=== PATIENT | male | born 1985 | race American Indian/Alaskan Native ===

== ENCOUNTER 2018-01-26 21:30 | Emergency (ER) | payer OTHER ==
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
[2018-01-26] MEDS: Lidocaine 1% 30 ML SDV INJECT ONE (22:00)
[2018-01-26 22:04] LABS: CHLORIDE,CL 106 mmol/L (101-111); SODIUM,NA 140 mmol/L (135-145)
[2018-01-26] MEDS: Diphtheria,Pertussis(Acell),Tetanus Vaccine 0.5 ML SDV IM ONE (22:55)
[2018-01-26] MEDS: Bacitracin Oint 1 GM U/D Packet TOP ONE (22:58)
[2018-01-26] MEDS: Iopamidol 612 MG/ML 100 ML Bottle IVPUSH ONE (22:58)
== END 2018-01-26 23:00 ==
LOC: DL.ED 21:30
DX: S71.112A Laceration without foreign body, left thigh, initial encounter (principal); F10.129 Alcohol abuse with intoxication, unspecified; Z23 Encounter for immunization; Y90.8 Blood alcohol level of 240 mg/100 ml or more; Y04.0XXA Assault by unarmed brawl or fight, initial encounter
CPT/HCPCS: 36415; 80053; 85025; 85610; 90471; 90715; 99284; G0480

== ENCOUNTER 2020-09-03 14:25 | Emergency (ER) | payer OTHER ==
[2020-09-03] MEDS ORDERED: Sodium Chloride 0.9% 1,000 ML IV ONE (14:34)
[2020-09-03 14:35] VITALS: BP 110/74; PULSE 134
[2020-09-03] MEDS ORDERED: Ondansetron 4 MG/2 ML SDV IVPUSH ONE (14:35)
[2020-09-03] MEDS ORDERED: Iopamidol 755 Mg/ML 100 ML Bottle IVPUSH ONE (15:21)
[2020-09-03] MEDS ORDERED: cefTRIAXone 1 GM in Sodium Chloride 0.9% 50 ML IV ONE (15:54)
--- NOTE | 2020-09-03 16:18 | CT ---
EXAMINATION: Chest w Cont SEX: Male AGE: 35 years CLINICAL HISTORY: 35-year-old 150 pound febrile male SHORT OF BREATH. "Skinny male" tests COVID negative. Meth addict ("smokes, injects, snorts") and describes onset of symptomatology 5 days ago. WBC 14,800. Serum D dimer 1640. Scan technique: Volume acquisition of data chest (bony thorax, lungs and mediastinum) obtained during the intravenous administration of 59 cc nonionic Isovue 370 contrast at 4.6 cc/s via injector (PE protocol) while lying supine on the Siemens multislice scanner [place], [place]. All data archived in the PACS system for storage, reformatting axial/sagittal/coronal planes and study. Note: Examination is nondiagnostic with regards to pulmonary embolism/infarct (patient Valsalva?). Interpretation: Markedly ABNORMAL. 1. *Dense pneumonic like consolidation opacifying most of the left lower lobe (LLL) and right middle lobe (RML) as well as small segment of the contralateral right lower lobe (RLL), with underlying air bronchograms most characteristic of aspiration pneumonia. Clinical? 2. Dependent large subpulmonic pleural effusion, on the left. Empyema a differential consideration. 3. No peripheral "groundglass" interstitial densities suggesting COVID pneumonia. 4. Normal cardiac silhouette. No pericardial effusion. No vascular congestion, cephalization of flow or upper lobe alveolar edema. No pleural effusion on the right. 5. No contrast in the main pulmonary arteries (exam "triggered" late) i.e exam nondiagnostic for pulmonary embolism or infarct. Normal left ventricle/thoracic aorta. 6. No pneumothorax or pneumomediastinum. 7. Most of the liver, stomach, spleen, and both adrenal glands unremarkable.
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
== END 2020-09-03 17:25 ==
LOC: DL.ED 14:25
DX: J18.9 Pneumonia, unspecified organism (principal); J90 Pleural effusion, not elsewhere classified; Z72.0 Tobacco use
CPT/HCPCS: 36415; 71260; 83605; 85379; 87040; 96365; 96367; 96375; 99285; J0696; J2405; J3370; J7030; J7050; Q9967; 87077; 87186

== ENCOUNTER 2022-09-20 20:10 | Emergency (ER) | payer MEDICAID, OTHER ==
[2022-09-20 20:46] LABS: ANION GAP 13.7 mEq/L (7-13); CHLORIDE,CL 106 mmol/L (98-107); ESTIMATED GFR 118 mL/min (>=60); SODIUM,NA 145 mmol/L (136-145)
[2022-09-20 21:08] VITALS: BP 154/106; PULSE 88
== END 2022-09-20 22:08 | disposition home or self-care (01) ==
LOC: DL.ED 20:10
DX: S01.01XA Laceration without foreign body of scalp, initial encounter (principal); Y04.2XXA Assault by strike against or bumped into by another person, initial encounter
CPT/HCPCS: 12001; 36415; 70450; 70486; 72125; 80053; 80307; 85025; 99283; 99284

== ENCOUNTER 2022-12-12 15:47 | Emergency (ER) | payer MEDICAID ==
[~2022-12-12 15:47] MED LIST: Naloxone 2 MG/2 ML Syringe IVPUSH ONE
[2022-12-12] MEDS ORDERED: Ondansetron 4 MG/2 ML SDV IV ONE (15:49)
[2022-12-12] MEDS ORDERED: Sodium Chloride 0.9% 10 ML Syringe FLUSH PRN (15:49)
[2022-12-12] MEDS ORDERED: Sodium Chloride 0.9% 1,000 ML IV ONE ×2 (15:49→17:35)
[2022-12-12 15:57] VITALS: BP 140/92; PULSE 80
[2022-12-12 16:26] LABS: APPEARANCE,URINE CLEAR (CLEAR); BILIRUBIN,URINE NEGATIVE (NEGATIVE); COLOR,URINE YELLOW (YELLOW); GLUCOSE,URINE NEGATIVE (NEGATIVE); KETONES,URINE 15 (NEGATIVE); LEUKOCYTE ESTERASE,URINE NEGATIVE (NEGATIVE); NITRITE,URINE NEGATIVE (NEGATIVE); OCCULT BLOOD,URINE TRACE-INTACT (NEGATIVE); PROTEIN,URINE 100 (NEGATIVE); UROBILINOGEN,URINE 0.2 mg/dL (0.2-1.0)
[2022-12-12 16:33] LABS: AMPHETAMINES,URINE POSITIVE (NEGATIVE); BARBITURATES,URINE NEGATIVE (NEGATIVE); BENZODIAZEPINE,URINE NEGATIVE (NEGATIVE); MDMA (ECSTASY), URINE NEGATIVE (NEGATIVE); METHADONE,URINE NEGATIVE (NEGATIVE); METHAMPHETAMINES,URINE POSITIVE (NEGATIVE); OPIATES,URINE NEGATIVE (NEGATIVE); OXYCODONE,URINE NEGATIVE (NEGATIVE); PHENCYCLIDINE,URINE NEGATIVE (NEGATIVE); TCA,URINE NEGATIVE (NEGATIVE)
[2022-12-12 16:47] LABS: BASOPHILS PERCENT AUTO 1.7 % (0.0-1.0); EOSINOPHILS PERCENT AUTO 0.9 % (1.0-3.0); HEMATOCRIT 38.7 % (40.0-54.0); HEMOGLOBIN 12.9 g/dL (14.0-18.0); LYMPHOCYTES PERCENT AUTO 25.7 % (20.5-50.1); MEAN CORPUSCULAR HGB CONC 33.3 g/dL (33.0-35.0); MEAN CORPUSCULAR VOLUME 84.1 fL (80-100); MONOCYTES PERCENT AUTO 6.7 % (2-8); PLATELET COUNT,PLT 236 10^3/uL (150-450); WHITE BLOOD CELL COUNT,WBC 5.4 10^3/uL (5.0-10.0)
[2022-12-12 16:55] LABS: AMORPHOUS SEDIMENT,URINE MODERATE /HPF (NOT SEEN); BACTERIA,URINE FEW /HPF (0-FEW/HPF); EPITHELIAL CELLS,URINE MANY /HPF (NOT SEEN); FINE GRANULAR CASTS,URINE FEW /LPF (NOT SEEN); GRANULAR CASTS,URINE MANY; HYALINE CASTS,URINE FEW; MUCUS,URINE FEW /LPF (NOT SEEN); RBC,URINE 0-5 /HPF (0-5); WBC,URINE 0-5 /HPF (0-5/HPF)
[2022-12-12] MEDS ORDERED: Piperacillin/Tazobactam 3.375 GM in Sodium Chloride 0.9% 100 ML IV ONE (17:02)
[2022-12-12] MEDS ORDERED: Azithromycin 250 MG Tab PO ONE (17:02)
[2022-12-12 17:06] LABS: INR 0.9 (0.9-1.2); PROTHROMBIN TIME 9.6 SEC (9.0-12.0); PTT,PARTIAL THROMBOPLSTIN TIME 26.2 SEC (22.0-34.0)
[2022-12-12 17:09] LABS: A/G RATIO 0.9; ALBUMIN 3.5 g/dL (3.4-5.0); ANION GAP 15.7 mEq/L (7-13); BILIRUBIN TOTAL 0.8 mg/dL (0.2-1.0); CALCIUM 7.5 mg/dL (8.5-10.1); CREATININE 0.86 mg/dL (0.70-1.30); EST CRCL DRUG DOSING (CG) 108.89 mL/min; POTASSIUM,K 3.7 mmol/L (3.5-5.1); PROTEIN TOTAL,TP 7.2 g/dL (6.4-8.2)
[2022-12-12 17:26] LABS: LACTIC ACID 2.9 mmol/L (0.4-2.0)
== END 2022-12-12 21:07 | disposition home or self-care (01) ==
LOC: DL.ED 15:47
DX: S02.40FA Zygomatic fracture, left side, initial encounter for closed fracture (principal); S00.03XA Contusion of scalp, initial encounter; S10.93XA Contusion of unspecified part of neck, initial encounter; S05.12XA Contusion of eyeball and orbital tissues, left eye, initial encounter; F10.929 Alcohol use, unspecified with intoxication, unspecified; F12.10 Cannabis abuse, uncomplicated; F15.129 Other stimulant abuse with intoxication, unspecified; F17.210 Nicotine dependence, cigarettes, uncomplicated; Y90.8 Blood alcohol level of 240 mg/100 ml or more; Y04.0XXA Assault by unarmed brawl or fight, initial encounter
CPT/HCPCS: 36415; 70450; 70486; 71045; 72125; 80053; 80143; 80179; 80305-QW; 80307; 81001; 82947; 83605; 85025; 85610; 85730; 87040; 96365; 96375; 99284; 99284-25; A9270-GY; J2310; J2405; J2543; J3490; J7030

== ENCOUNTER 2023-01-22 17:28 | Emergency (ER) | payer MEDICAID ==
[2023-01-22] MEDS ORDERED: Amoxicillin/Clavulanate K 875-125 MG Tab PO ONE (21:27)
[2023-01-22 21:59] LABS: BASOPHILS PERCENT AUTO 0.8 % (0.0-1.0); EOSINOPHILS PERCENT AUTO 2.9 % (1.0-3.0); HEMATOCRIT 38.6 % (40.0-54.0); HEMOGLOBIN 12.9 g/dL (14.0-18.0); LYMPHOCYTES PERCENT AUTO 33.5 % (20.5-50.1); MEAN CORPUSCULAR HGB CONC 33.4 g/dL (33.0-35.0); MEAN CORPUSCULAR VOLUME 83.9 fL (80-100); NEUTROPHILS PERCENT AUTO 54.8 % (42.2-75.2); PLATELET COUNT,PLT 106 10^3/uL (150-450); WHITE BLOOD CELL COUNT,WBC 5.3 10^3/uL (5.0-10.0)
[2023-01-22 22:17] LABS: A/G RATIO 0.9; ALBUMIN 3.7 g/dL (3.4-5.0); ANION GAP 13.5 mEq/L (7-13); BILIRUBIN TOTAL 0.8 mg/dL (0.2-1.0); BUN/CREATININE RATIO 8.5 (No establ ref range); CALCIUM 8.1 mg/dL (8.5-10.1); CREATININE 0.82 mg/dL (0.70-1.30); EST CRCL DRUG DOSING (CG) 106.58 mL/min; MAGNESIUM 1.6 mg/dL (1.8-2.4); POTASSIUM,K 3.5 mmol/L (3.5-5.1); PROTEIN TOTAL,TP 7.6 g/dL (6.4-8.2)
[2023-01-22] MEDS ORDERED: Lactated Ringers 1,000 ML IV ONE (22:54)
[2023-01-22 22:59] LABS: AMPHETAMINES,URINE NEGATIVE (NEGATIVE); BARBITURATES,URINE NEGATIVE (NEGATIVE); BENZODIAZEPINE,URINE NEGATIVE (NEGATIVE); MDMA (ECSTASY), URINE NEGATIVE (NEGATIVE); METHADONE,URINE NEGATIVE (NEGATIVE); METHAMPHETAMINES,URINE NEGATIVE (NEGATIVE); OPIATES,URINE NEGATIVE (NEGATIVE); OXYCODONE,URINE NEGATIVE (NEGATIVE); PHENCYCLIDINE,URINE NEGATIVE (NEGATIVE); TCA,URINE NEGATIVE (NEGATIVE)
[2023-01-23] MEDS ORDERED: Lidocaine 1% 5 ML VIAL INJECT ONE (00:51)
[2023-01-23 02:06] VITALS: BP 113/85; PULSE 88
== END 2023-01-23 02:01 | disposition home or self-care (01) ==
LOC: DL.ED 17:28
DX: S01.511A Laceration without foreign body of lip, initial encounter (principal); F10.120 Alcohol abuse with intoxication, uncomplicated; F17.210 Nicotine dependence, cigarettes, uncomplicated; Y90.8 Blood alcohol level of 240 mg/100 ml or more; Y04.1XXA Assault by human bite, initial encounter
CPT/HCPCS: 12011; 36415; 80053; 80305; 80307; 83735; 85025; 96360; 99282; 99284; A9270; J7120; J3490

== ENCOUNTER 2024-07-23 02:30 | Emergency (ER) | payer MEDICAID ==
[2024-07-23 02:56] LABS: BASOPHILS PERCENT AUTO 0.3 % (0.0-1.0); EOSINOPHILS PERCENT AUTO 5.8 % (1.0-3.0); HEMATOCRIT 37.9 % (40.0-54.0); HEMOGLOBIN 12.2 g/dL (14.0-18.0); LYMPHOCYTES PERCENT AUTO 20.1 % (20.5-50.1); MEAN CORPUSCULAR HEMOGLOBIN 25.7 pg (27.0-34.0); MEAN CORPUSCULAR HGB CONC 32.2 g/dL (33.0-35.0); MONOCYTES PERCENT AUTO 7.7 % (2-8); NEUTROPHILS PERCENT AUTO 66.1 % (42.2-75.2); PLATELET COUNT,PLT 150 10^3/uL (150-450); RED BLOOD CELL COUNT 4.74 10^6/uL (4.6-6.2); WHITE BLOOD CELL COUNT,WBC 5.8 10^3/uL (5.0-10.0)
[2024-07-23] MEDS: Iopamidol 612 MG/ML 100 ML Bottle IVPUSH ONE (02:58)
[2024-07-23 03:09] LABS: LACTIC ACID 1.6 mmol/L (0.4-2.0)
[2024-07-23] MEDS: Sodium Chloride 0.9% 1,000 ML IV ONE ×2 (03:10→04:10)
[2024-07-23 03:13] LABS: ALANINE AMINOTRANSFERASE,ALT 28 U/L (16-63); ALBUMIN 3.2 g/dL (3.4-5.0); ALKALINE PHOSPHATASE 106 U/L (46-116); ANION GAP 15.3 mEq/L (7-13); ASPARTATE AMNIOTRANSFERASE,AST 50 U/L (15-37); BILIRUBIN TOTAL 0.5 mg/dL (0.2-1.0); BLOOD UREA NITROGEN,BUN 3 mg/dL (7-18); BUN/CREATININE RATIO 4.8 (No establ ref range); CALCIUM 7.7 mg/dL (8.5-10.1); CARBON DIOXIDE,CO2 26 mmol/L (21-32); CHLORIDE,CL 108 mmol/L (98-107); CREATININE 0.63 mg/dL (0.70-1.30); GLUCOSE RANDOM 99 mg/dL (70-99); LIPASE 56 U/L (16-77); MAGNESIUM 1.4 mg/dL (1.8-2.4); POTASSIUM,K 3.3 mmol/L (3.5-5.1); PROTEIN TOTAL,TP 7.2 g/dL (6.4-8.2); SODIUM,NA 146 mmol/L (136-145)
[2024-07-23 03:14] LABS: ESTIMATED GFR 124 mL/min (>=60); ETHANOL BLOOD MEDICAL 313 mg/dL (0)
[2024-07-23 03:22] LABS: PROTHROMBIN TIME 10.5 SEC (9.0-12.0)
[2024-07-23] MEDS: Thiamine 100 MG in Sodium Chloride 0.9% 100 ML IV ONE (04:10)
[2024-07-23] MEDS: Magnesium Sulfate/Water Premix 2 GM in Premix Bag 1 BAG IV ONE (04:10)
[2024-07-23 04:50] LABS: APPEARANCE,URINE CLEAR (CLEAR); BILIRUBIN,URINE NEGATIVE (NEGATIVE); COLOR,URINE YELLOW (YELLOW); GLUCOSE,URINE NEGATIVE (NEGATIVE); KETONES,URINE NEGATIVE (NEGATIVE); LEUKOCYTE ESTERASE,URINE NEGATIVE (NEGATIVE); NITRITE,URINE NEGATIVE (NEGATIVE); OCCULT BLOOD,URINE NEGATIVE (NEGATIVE); PROTEIN,URINE NEGATIVE (NEGATIVE)
[2024-07-23 04:53] LABS: AMPHETAMINES,URINE NEGATIVE (NEGATIVE); BARBITURATES,URINE NEGATIVE (NEGATIVE); BENZODIAZEPINE,URINE NEGATIVE (NEGATIVE); MDMA (ECSTASY), URINE NEGATIVE (NEGATIVE); METHADONE,URINE NEGATIVE (NEGATIVE); METHAMPHETAMINES,URINE NEGATIVE (NEGATIVE); OPIATES,URINE NEGATIVE (NEGATIVE); OXYCODONE,URINE NEGATIVE (NEGATIVE); PHENCYCLIDINE,URINE NEGATIVE (NEGATIVE); TCA,URINE NEGATIVE (NEGATIVE)
== END 2024-07-23 06:15 | disposition home or self-care (01) ==
LOC: DL.ED 02:30
DX: S00.03XA Contusion of scalp, initial encounter (principal); F10.920 Alcohol use, unspecified with intoxication, uncomplicated; W01.0XXA Fall on same level from slipping, tripping and stumbling without subsequent striking against object, initial encounter
CPT/HCPCS: 36415; 70450; 71260; 72125; 72128; 72131; 74177; 80053; 80305; 80307; 81003; 83605; 83690; 83735; 84484; 85025; 85610; 85730; 93005; 96361; 96365; 96366; 96375; 99285; J3411; J3475; J3490; J7030; Q9967; 93010; 99284

== ENCOUNTER 2024-12-02 05:30 | Emergency (ER) | payer MEDICAID ==
[~2024-12-02 05:30] MED LIST changes: -Naloxone 2 MG/2 ML Syringe IVPUSH ONE; +Sodium Chloride 0.9% 10 ML Syringe FLUSH PRN
[2024-12-02 05:36] LABS: HEMATOCRIT 40.2 % (40.0-54.0); HEMOGLOBIN 13.2 g/dL (14.0-18.0); MEAN CORPUSCULAR HEMOGLOBIN 28.1 pg (27.0-34.0); MEAN CORPUSCULAR HGB CONC 32.8 g/dL (33.0-35.0); MEAN CORPUSCULAR VOLUME 85.5 fL (80-100); PLATELET COUNT,PLT 253 10^3/uL (150-450); WHITE BLOOD CELL COUNT,WBC 5.6 10^3/uL (5.0-10.0)
[2024-12-02 05:37] LABS: BASOPHILS PERCENT AUTO 1.4 % (0.0-1.0); EOSINOPHILS PERCENT AUTO 11.6 % (1.0-3.0); LYMPHOCYTES PERCENT AUTO 30.9 % (20.5-50.1); MONOCYTES PERCENT AUTO 9.3 % (2-8); NEUTROPHILS PERCENT AUTO 46.8 % (42.2-75.2)
[2024-12-02 05:48] LABS: A/G RATIO 0.7; ALANINE AMINOTRANSFERASE,ALT 54 U/L (16-63); ALBUMIN 3.4 g/dL (3.4-5.0); ALKALINE PHOSPHATASE 89 U/L (46-116); ANION GAP 12.7 mEq/L (7-13); ASPARTATE AMNIOTRANSFERASE,AST 79 U/L (15-37); BILIRUBIN TOTAL 0.2 mg/dL (0.2-1.0); BLOOD UREA NITROGEN,BUN 9 mg/dL (7-18); BUN/CREATININE RATIO 10.7 (No establ ref range); CALCIUM 8.6 mg/dL (8.5-10.1); CARBON DIOXIDE,CO2 28 mmol/L (21-32); CHLORIDE,CL 110 mmol/L (98-107); CREATININE 0.84 mg/dL (0.70-1.30); ETHANOL BLOOD MEDICAL 290 mg/dL (0); GLUCOSE RANDOM 110 mg/dL (70-99); POTASSIUM,K 3.7 mmol/L (3.5-5.1); PROTEIN TOTAL,TP 8.1 g/dL (6.4-8.2); SODIUM,NA 147 mmol/L (136-145)
[2024-12-02 06:06] LABS: ESTIMATED GFR 113 mL/min (>=60)
[2024-12-02 06:11] VITALS: BP 137/97; PULSE 102
[2024-12-02 06:18] LABS: EOSINOPHILS PERCENT MAN 12 % (1-3); LYMPHOCYTES PERCENT MAN 28 % (20-50); MONOCYTES PERCENT MAN 9 % (2-8); SEG NEUTROPHILS PERCENT MAN 51 % (42-75)
[2024-12-02] MEDS: Bacitracin Oint 1 GM U/D Packet TOP ONE (06:50)
[2024-12-02] MEDS: Lidocaine 1% 5 ML VIAL INJECT ONE (06:51)
[2024-12-02] MEDS: Diphtheria,Pertussis(Acell),Tetanus Vaccine 0.5 ML Syringe IM ONE (07:02)
== END 2024-12-02 07:35 | disposition home or self-care (01) ==
LOC: DL.ED 05:30
DX: S01.111A Laceration without foreign body of right eyelid and periocular area, initial encounter (principal); Z23 Encounter for immunization; F17.210 Nicotine dependence, cigarettes, uncomplicated; W19.XXXA Unspecified fall, initial encounter
CPT/HCPCS: 12011; 36415; 70450; 72125; 80053; 80307; 85025; 90471; 90715; 99283; 99285; A9270; J2003